=== PATIENT | male | born 1995 | race African-American/Black ===

== ENCOUNTER 2017-07-09 00:09 | Emergency (ER) | payer MEDICAID ==
[2017-07-09] MEDS ORDERED: Albuterol/Ipratropium 3.0-0.5 MG/3 ML Neb Soln NEB ONE (00:21)
[2017-07-09] MEDS ORDERED: predniSONE 20 MG Tab PO ONE (00:22)
--- NOTE | 2017-07-09 00:23 | EDM.PDOC ---
ED HPI GENERAL MEDICAL PROBLEM - General Chief Complaint: Medication Administration Stated Complaint: ASTHMA Time Seen by Provider: 07/09/17 00:21 - History of Present Illness INITIAL COMMENTS - FREE TEXT/NARRATIVE: HISTORY AND PHYSICAL: History of present illness: Patient's 21-year-old black male history of asthma presents with concern of asthmatic exacerbation he denies fever chills nausea vomiting or other complaints he states is mild Review of systems: As per history of present illness and below otherwise all systems reviewed and negative. Past medical history: As per history of present illness and as reviewed below otherwise noncontributory. Surgical history: As per history of present illness and as reviewed below otherwise noncontributory. Social history: No reported history of drug or alcohol abuse. Family history: As per history of present illness and as reviewed below otherwise noncontributory. Physical exam: HEENT: Atraumatic, normocephalic, pupils reactive, negative for conjunctival pallor or scleral icterus, mucous membranes moist, throat clear, neck supple, nontender, trachea midline. Lungs: Slightly diminished with rare end expiratory wheezing no rhonchi no crackles, breath sounds equal bilaterally, chest nontender. Heart: S1S2, regular, negative for clicks, rubs, or JVD. Abdomen: Soft, nondistended, nontender. Negative for masses or hepatosplenomegaly. Negative for costovertebral tenderness. Pelvis: Stable nontender. Genitourinary: Deferred. Rectal: Deferred. Extremities: Atraumatic, negative for cords or calf pain. Neurovascular unremarkable. Neuro: Awake, alert, oriented. Cranial nerves II through XII unremarkable. Cerebellum unremarkable. Motor and sensory unremarkable throughout. Exam nonfocal. Diagnostics: None Therapeutics: Prednisone 40 mg by mouth albuterol ipratropium nebulizer Impression: #1 mild asthmatic exacerbation Definitive disposition and diagnosis as appropriate pending reevaluation and review of above. - Related Data Allergies Allergy/AdvReac Type Severity Reaction Status Date / Time No Known Allergies Allergy Verified 07/09/17 00:14 Home Meds: Home Meds Albuterol [Ventolin HFA] 1 puff INH BID 08/15/16 [History] Past Medical History - Past Health History Medical/Surgical History: Denies Medical/Surgical History HEENT History: Reports: None Cardiovascular History: Reports: None Respiratory History: Reports: Asthma Gastrointestinal History: Reports: None Musculoskeletal History: Reports: None Neurological History: Reports: None Psychiatric History: Reports: None Endocrine/Metabolic History: Reports: None Hematologic History: Reports: None Oncologic (Cancer) History: Reports: None Dermatologic History: Reports: None - Infectious Disease History Infectious Disease History: Reports: None Social & Family History - Family History Family Medical History: Noncontributory - Tobacco Use Smoking Status *Q: Current Some Day Smoker Years of Tobacco use: 4 Packs/Tins Daily: 0.5 - Caffeine Use Caffeine Use: Reports: None - Recreational Drug Use Recreational Drug Use: No ED ROS GENERAL - Review of Systems Review Of Systems: ROS reveals no pertinent complaints other than HPI. ED EXAM, GENERAL - Physical Exam Exam: See Below (The dictation) Departure - Departure Time of Disposition: 00:22 Disposition: Home, Self-Care 01 Condition: Good Clinical Impression: Asthma - Discharge Information Referrals: PCP,None [Primary Care Provider] - Additional Instructions: The following information is given to patients seen in the emergency department who are being discharged to home. This information is to outline your options for follow-up care. We provide all patients seen in our emergency department with a follow-up referral. The need for follow-up, as well as the timing and circumstances, are variable depending upon the specifics of your emergency department visit. If you don't have a primary care physician on staff, we will provide you with a referral. We always advise you to contact your personal physician following an emergency department visit to inform them of the circumstance of the visit and for follow-up with them and/or the need for any referrals to a consulting specialist. The emergency department will also refer you to a specialist when appropriate. This referral assures that you have the opportunity for followup care with a specialist. All of these measure are taken in an effort to provide you with optimal care, which includes your followup. Under all circumstances we always encourage you to contact your private physician who remains a resource for coordinating your care. When calling for followup care, please make the office aware that this follow-up is from your recent emergency room visit. If for any reason you are refused follow-up, please contact the [facility] emergency department at and asked to speak to the emergency department charge nurse. [facility] [address] [place] [id number] Medrol albuterol as prescribed follow-up primary medical doctor and/or clinic above return as needed as discussed
[2017-07-09 00:51] VITALS: BP 118/62
== END 2017-07-09 00:49 | disposition home or self-care (01) ==
LOC: MW.ED 00:09
DX: J45.901 Unspecified asthma with (acute) exacerbation (principal); F17.210 Nicotine dependence, cigarettes, uncomplicated
CPT/HCPCS: 99282; A9270

== ENCOUNTER 2017-07-10 21:56 | Emergency (ER) | payer MEDICAID ==
[2017-07-10] MEDS ORDERED: Albuterol/Ipratropium 3.0-0.5 MG/3 ML Neb Soln NEB ONE (22:01)
[2017-07-10] MEDS ORDERED: Albuterol/Ipratropium 3.0-0.5 MG/3 ML Neb Soln ONE (22:02)
--- NOTE | 2017-07-10 22:04 | EDM.PDOC ---
ED HPI GENERAL MEDICAL PROBLEM - General Chief Complaint: Respiratory Problem Stated Complaint: ASTHMA ATTACK Time Seen by Provider: 07/10/17 21:59 - History of Present Illness INITIAL COMMENTS - FREE TEXT/NARRATIVE: HISTORY AND PHYSICAL: History of present illness: Patient's 21-year-old black male history of asthma presents with concern of asthma he was seen yesterday by myself he has not filled his prescription for Medrol Review of systems: As per history of present illness and below otherwise all systems reviewed and negative. Past medical history: As per history of present illness and as reviewed below otherwise noncontributory. Surgical history: As per history of present illness and as reviewed below otherwise noncontributory. Social history: No reported history of drug or alcohol abuse. Family history: As per history of present illness and as reviewed below otherwise noncontributory. Physical exam: HEENT: Atraumatic, normocephalic, pupils reactive, negative for conjunctival pallor or scleral icterus, mucous membranes moist, throat clear, neck supple, nontender, trachea midline. Lungs: Clear to auscultation, breath sounds equal bilaterally, chest nontender. Heart: S1S2, regular, negative for clicks, rubs, or JVD. Abdomen: Soft, nondistended, nontender. Negative for masses or hepatosplenomegaly. Negative for costovertebral tenderness. Pelvis: Stable nontender. Genitourinary: Deferred. Rectal: Deferred. Extremities: Atraumatic, negative for cords or calf pain. Neurovascular unremarkable. Neuro: Awake, alert, oriented. Cranial nerves II through XII unremarkable. Cerebellum unremarkable. Motor and sensory unremarkable throughout. Exam nonfocal. Diagnostics: None Therapeutics: Albuterol ipratropium nebulizer Impression: #1 asthma #2 medical noncompliance Definitive disposition and diagnosis as appropriate pending reevaluation and review of above. - Related Data Allergies Allergy/AdvReac Type Severity Reaction Status Date / Time No Known Allergies Allergy Verified 07/09/17 00:14 Home Meds: Home Meds Albuterol [Ventolin HFA] 1 puff INH BID 08/15/16 [History] Past Medical History - Past Health History Medical/Surgical History: Denies Medical/Surgical History HEENT History: Reports: None Cardiovascular History: Reports: None Respiratory History: Reports: Asthma Gastrointestinal History: Reports: None Musculoskeletal History: Reports: None Neurological History: Reports: None Psychiatric History: Reports: None Endocrine/Metabolic History: Reports: None Hematologic History: Reports: None Oncologic (Cancer) History: Reports: None Dermatologic History: Reports: None - Infectious Disease History Infectious Disease History: Reports: None Social & Family History - Family History Family Medical History: Noncontributory - Tobacco Use Smoking Status *Q: Current Some Day Smoker Years of Tobacco use: 4 Packs/Tins Daily: 0.5 - Caffeine Use Caffeine Use: Reports: None - Recreational Drug Use Recreational Drug Use: No ED ROS GENERAL - Review of Systems Review Of Systems: ROS reveals no pertinent complaints other than HPI. ED EXAM, GENERAL - Physical Exam Exam: See Below (See dictation) Course - Orders/Labs/Meds Orders: Active Orders 24 hr Category Date Time Status RT Aerosol Therapy [RC] ASDIRECTED Care 07/10/17 22:01 Ordered Albuterol/Ipratropium [DuoNeb 3.0-0.5 MG/3 ML] Med 07/10/17 22:01 Once 3 ml NEB ONETIME ONE Departure - Departure Time of Disposition: 22:03 Disposition: Home, Self-Care 01 Condition: Good Clinical Impression: Asthma, Medical non-compliance - Discharge Information Referrals: PCP,None [Primary Care Provider] - Additional Instructions: The following information is given to patients seen in the emergency department who are being discharged to home. This information is to outline your options for follow-up care. We provide all patients seen in our emergency department with a follow-up referral. The need for follow-up, as well as the timing and circumstances, are variable depending upon the specifics of your emergency department visit. If you don't have a primary care physician on staff, we will provide you with a referral. We always advise you to contact your personal physician following an emergency department visit to inform them of the circumstance of the visit and for follow-up with them and/or the need for any referrals to a consulting specialist. The emergency department will also refer you to a specialist when appropriate. This referral assures that you have the opportunity for followup care with a specialist. All of these measure are taken in an effort to provide you with optimal care, which includes your followup. Under all circumstances we always encourage you to contact your private physician who remains a resource for coordinating your care. When calling for followup care, please make the office aware that this follow-up is from your recent emergency room visit. If for any reason you are refused follow-up, please contact the [facility] emergency department at and asked to speak to the emergency department charge nurse. [facility] [address] [place] [id number] Medrol is prescribed albuterol as directed follow-up primary medical doctor and/ or clinic above as discussed return as needed as discussed - My Orders Last 24 Hours: My Active Orders 07/10/17 22:01 RT Aerosol Therapy [RC] ASDIRECTED Albuterol/Ipratropium [DuoNeb 3.0-0.5 MG/3 ML] 3 ml NEB ONETIME ONE - Assessment/Plan Last 24 Hours: My Active Orders 07/10/17 22:01 RT Aerosol Therapy [RC] ASDIRECTED Albuterol/Ipratropium [DuoNeb 3.0-0.5 MG/3 ML] 3 ml NEB ONETIME ONE
[2017-07-10 22:30] VITALS: BP 134/69
== END 2017-07-10 22:30 | disposition home or self-care (01) ==
LOC: MW.ED 21:56
DX: J45.909 Unspecified asthma, uncomplicated (principal); F17.210 Nicotine dependence, cigarettes, uncomplicated; Z91.19 Patient's noncompliance with other medical treatment and regimen
CPT/HCPCS: 99282; 99284-25

== ENCOUNTER 2017-07-12 22:42 | Observation (INO) | payer MEDICAID ==
[2017-07-12] MEDS ORDERED: Albuterol/Ipratropium 3.0-0.5 MG/3 ML Neb Soln NEB ONE ×2 (22:47→23:52)
--- NOTE | 2017-07-12 22:51 | EDM.PDOC ---
ED HPI GENERAL MEDICAL PROBLEM - General Chief Complaint: Respiratory Problem Stated Complaint: MAY HAVE HAD ASTHMA ATTACK Time Seen by Provider: 07/12/17 22:48 - History of Present Illness INITIAL COMMENTS - FREE TEXT/NARRATIVE: HISTORY AND PHYSICAL: History of present illness: Patient's 21-year-old black male history of asthma presents for the third time in 3 days for asthmatic exacerbation he was seen on day 2 after returning and confirming medical noncompliance related to medications prescribed he returns today stating that he has been compliant with his medications equivocates whether he's been using marijuana or not. He does smell of marijuana he denies tobacco otherwise Review of systems: As per history of present illness and below otherwise all systems reviewed and negative. Past medical history: As per history of present illness and as reviewed below otherwise noncontributory. Surgical history: As per history of present illness and as reviewed below otherwise noncontributory. Social history: No reported history of drug or alcohol abuse. Family history: As per history of present illness and as reviewed below otherwise noncontributory. Physical exam: HEENT: Atraumatic, normocephalic, pupils reactive, negative for conjunctival pallor or scleral icterus, mucous membranes moist, throat clear, neck supple, nontender, trachea midline. Lungs: Scattered inspiratory and expiratory wheezing no rhonchi or crackles, breath sounds equal bilaterally, chest nontender. Heart: S1S2, regular, negative for clicks, rubs, or JVD. Abdomen: Soft, nondistended, nontender. Negative for masses or hepatosplenomegaly. Negative for costovertebral tenderness. Pelvis: Stable nontender. Genitourinary: Deferred. Rectal: Deferred. Extremities: Atraumatic, negative for cords or calf pain. Neurovascular unremarkable. Neuro: Awake, alert, oriented. Cranial nerves II through XII unremarkable. Cerebellum unremarkable. Motor and sensory unremarkable throughout. Exam nonfocal. Diagnostics: Chest x-ray ABG urine drug screen Therapeutics: Albuterol ipratropium nebulizer Impression: #1 acute asthmatic exacerbation #2 medical noncompliance #3 substance abuse Definitive disposition and diagnosis as appropriate pending reevaluation and review of above. - Related Data Allergies Allergy/AdvReac Type Severity Reaction Status Date / Time No Known Allergies Allergy Verified 07/10/17 22:05 Home Meds: Home Meds Albuterol [Ventolin HFA] 1 puff INH BID PRN 08/15/16 [History] Past Medical History - Past Health History Medical/Surgical History: Denies Medical/Surgical History HEENT History: Reports: None Cardiovascular History: Reports: None Respiratory History: Reports: Asthma Gastrointestinal History: Reports: None Musculoskeletal History: Reports: None Neurological History: Reports: None Psychiatric History: Reports: None Endocrine/Metabolic History: Reports: None Hematologic History: Reports: None Oncologic (Cancer) History: Reports: None Dermatologic History: Reports: None - Infectious Disease History Infectious Disease History: Reports: None Social & Family History - Family History Family Medical History: Noncontributory - Tobacco Use Smoking Status *Q: Current Every Day Smoker Years of Tobacco use: 3 Packs/Tins Daily: 0.5 - Caffeine Use Caffeine Use: Reports: Coffee, Soda - Recreational Drug Use Recreational Drug Use: No ED ROS GENERAL - Review of Systems Review Of Systems: ROS reveals no pertinent complaints other than HPI. ED EXAM, GENERAL - Physical Exam Exam: See Below (See dictated) Course - Vital Signs Last Recorded V/S: Last Vital Signs Temp 36.4 C 07/12/17 22:42 Pulse 138 H 07/12/17 22:42 Resp 30 H 07/12/17 22:42 BP 136/89 07/12/17 22:42 Pulse Ox 98 07/12/17 22:42 - Orders/Labs/Meds Orders: Active Orders 24 hr Category Date Time Status RT Aerosol Therapy [RC] ASDIRECTED Care 07/12/17 22:47 Active RT Aerosol Therapy [RC] ASDIRECTED Care 07/12/17 23:52 Active Chest 1V Frontal [CR] Stat Exams 07/12/17 22:48 Taken Labs: Laboratory Tests 07/12/17 07/12/17 Range/Units 23:11 23:30 ABG pH 7.447 (7.35-7.45) ABG pCO2 33 L (35-45) mmHG ABG pO2 67 L (75-100) mmHG ABG HCO3 23 (22-26) mEq/L ABG Total CO2 20.2 ABG Base Excess -0.3 (-2.0-2.0) Urine Opiates Screen NEGATIVE (NEGATIVE) Ur Oxycodone Screen NEGATIVE (NEGATIVE) Urine Methadone Screen NEGATIVE (NEGATIVE) Ur Barbiturates Screen NEGATIVE (NEGATIVE) Ur Phencyclidine Scrn NEGATIVE (NEGATIVE) Ur Amphetamine Screen NEGATIVE (NEGATIVE) U Methamphetamines Scrn NEGATIVE (NEGATIVE) U Benzodiazepines Scrn NEGATIVE (NEGATIVE) U Cocaine Metab Screen NEGATIVE (NEGATIVE) U Marijuana (THC) Screen POSITIVE (NEGATIVE) Meds: Medications Discontinued Medications Generic Name Dose Route Start Last Admin Trade Name Freq PRN Reason Stop Dose Admin Albuterol/Ipratropium 3 ml 07/12/17 22:47 07/12/17 23:01 Duoneb 3.0-0.5 Mg/3 Ml NEB 07/12/17 22:48 3 ml ONETIME ONE Administration Albuterol/Ipratropium 3 ml 07/12/17 23:52 07/12/17 23:59 Duoneb 3.0-0.5 Mg/3 Ml NEB 07/12/17 23:53 3 ml ONETIME ONE Administration Departure - Departure Time of Disposition: 00:26 Disposition: Refer to Observation Condition: Good Clinical Impression: Exacerbation of asthma - Discharge Information Referrals: PCP,None [Primary Care Provider] - Forms: ED Department Discharge - My Orders Last 24 Hours: My Active Orders 07/12/17 22:47 RT Aerosol Therapy [RC] ASDIRECTED 07/12/17 22:48 Chest 1V Frontal [CR] Stat 07/12/17 23:52 RT Aerosol Therapy [RC] ASDIRECTED - Assessment/Plan Last 24 Hours: My Active Orders 07/12/17 22:47 RT Aerosol Therapy [RC] ASDIRECTED 07/12/17 22:48 Chest 1V Frontal [CR] Stat 07/12/17 23:52 RT Aerosol Therapy [RC] ASDIRECTED
[2017-07-13] MEDS ORDERED: methylPREDNISolone Sodium Succinate 125 MG/2 ML SDV IVPUSH ONE (00:32)
[2017-07-13 01:09] LABS: CHLORIDE,CL 107 mmol/L (98-110); SODIUM,NA 139 mmol/L (136-146)
[2017-07-13] MEDS: Albuterol/Ipratropium 3.0-0.5 MG/3 ML Neb Soln NEB SCH ×2 (03:16→06:21)
[2017-07-13 06:58] LABS: CHLORIDE,CL 107 mmol/L (98-110); SODIUM,NA 137 mmol/L (136-146)
[2017-07-13] MEDS ORDERED: methylPREDNISolone Sodium Succinate 125 MG/2 ML SDV IVPUSH SCH (07:00)
[2017-07-13 09:22] VITALS: BP 112/71
--- NOTE | 2017-07-13 10:50 | PCM.HP ---
<Favio Grijalva - Last Filed: 07/13/17 10:43> H&P History of Present Illness - General Date of Service: 07/13/17 Admit Problem/Dx: asthma exacerbation Source of Information: Patient History Limitations: Reports: No Limitations - History of Present Illness Initial Comments - Free Text/Narative: 21-year-old male is being admitted with an asthma exacerbation. Patient presented to the emergency room complaining of shortness of breath and stating that he had not been compliant with his recently prescribed albuterol. Patient has been short of breath over 3 days. Patient has no other medical problems. He currently denies any headaches, dizziness, chest pain, palpitations, abdominal pain, nausea, vomiting, diarrhea, fever. ER course: Chest x-ray was unremarkable. Patient given multiple treatments of DuoNeb's. Patient did not require supplemental O2 in the emergency room. White count was slightly elevated at 11.4. BMP was unremarkable. Admission diagnosis: #1. Asthma exacerbation Discharge diagnoses: #1. Asthma exacerbation, improved 21-year-old male admitted with an asthma exacerbation. Upon presenting to the emergency room, the patient was tachycardic and tachypnea and was given multiple treatments with duo nebs. Chest x-ray was unremarkable. White blood cell count was elevated at 11.4 but at the time of discharge had improved to within normal limits. Patient did not require supplemental oxygen at anytime during hospitalization. He was treated with scheduled DuoNeb's and a one-time dose of Solu-Medrol during admission. Patient notes that with these treatments his work of breathing improved and he was no longer short of breath. At the time of discharge, the patient was tolerating oral intake and voiding appropriately. He was ambulating without shortness of breath without assistance. Vital signs were within normal limits at the time of discharge. Patient was afebrile and did not have any concerns. Discharge plan: #1. Follow-up appointment will be set up with Dr. Grijalva. #2. Patient will continue with albuterol inhaler as needed. #3. Patient prescribed prednisone 40 mg over 7 days. #4. Patient prescribed Pulmicort for daily use to prevent asthma exacerbation. chest Pain Score (Numeric/FACES): 7 - Related Data Allergies/Adverse Reactions: Allergies Allergy/AdvReac Type Severity Reaction Status Date / Time No Known Allergies Allergy Verified 07/10/17 22:05 Home Medications: Home Meds Albuterol [Ventolin HFA] 1 puff INH BID PRN 08/15/16 [History] Budesonide [Pulmicort Flexhaler] 180 mcg IH BID #1 [email or web address] 07/13/17 [Rx] predniSONE 40 mg PO WITHBREAKFAST #7 tablet 07/13/17 [Rx] Past Medical History - Past Health History Medical/Surgical History: Denies Medical/Surgical History HEENT History: Reports: None Cardiovascular History: Reports: None Respiratory History: Reports: Asthma Gastrointestinal History: Reports: None Musculoskeletal History: Reports: None Neurological History: Reports: None Psychiatric History: Reports: None Endocrine/Metabolic History: Reports: None Hematologic History: Reports: None Oncologic (Cancer) History: Reports: None Dermatologic History: Reports: None - Infectious Disease History Infectious Disease History: Reports: Chicken Pox Social & Family History - Family History Family Medical History: Noncontributory HEENT: Reports: Impaired Vision Cardiac: Reports: Hypertension Respiratory: Reports: Asthma Oncologic: Reports: Breast - Tobacco Use Smoking Status *Q: Current Some Day Smoker Years of Tobacco use: 3 Packs/Tins Daily: 0.3 Second Hand Smoke Exposure: Yes - Caffeine Use Caffeine Use: Reports: Coffee - Recreational Drug Use Recreational Drug Use: Yes Drug Use in Last 12 Months: Yes Recreational Drug Type: Reports: Marijuana/Hashish Recreational Drug Use Frequency: Weekly H&P Review of Systems - Review of Systems: Review Of Systems: See Below General: Reports: No Symptoms HEENT: Reports: No Symptoms Pulmonary: Reports: Shortness of Breath, Wheezing Cardiovascular: Reports: No Symptoms Gastrointestinal: Reports: No Symptoms Genitourinary: Reports: No Symptoms Musculoskeletal: Reports: No Symptoms Skin: Reports: No Symptoms Psychiatric: Reports: No Symptoms Neurological: Reports: No Symptoms Hematologic/Lymphatic: Reports: No Symptoms Immunologic: Reports: No Symptoms Exam - Exam Exam: See Below - Vital Signs Vital Signs: Last Vital Signs Temp 98.6 F 07/13/17 08:00 Pulse 89 07/13/17 08:00 Resp 15 07/13/17 08:00 BP 112/71 07/13/17 08:00 Pulse Ox 96 07/13/17 08:00 Weight: 77.111 kg - Exam General: Alert, Oriented, Cooperative HEENT: Conjunctiva Clear, Hearing Intact, Mucosa Moist & Harrell, Nares Patent, Normal Nasal Septum Neck: Supple, Trachea Midline, 2 Lungs: Clear to Auscultation, Normal Respiratory Effort Cardiovascular: Regular Rate, Regular Rhythm GI/Abdominal Exam: Normal Bowel Sounds, Soft, Non-Tender, No Organomegaly, No Distention, No Abnormal Bruit, No Mass Extremities: Normal Inspection, Normal Range of Motion, Non-Tender, No Pedal Edema, Normal Capillary Refill Peripheral Pulses: 2+: Radial (L), Radial (R), Posterior Tibial (L), Posterior Tibial (R) Skin: Warm, Dry, Intact Neuro Extensive - Mental Status: Alert, Oriented x3, Normal Mood/Affect, Normal Cognition Psychiatric: Alert, Normal Affect, Normal Mood - Patient Data Lab Results Last 24 hrs: Laboratory Results - last 24 hr 07/13/17 07/13/17 07/13/17 Range/Units 00:40 00:40 06:25 WBC 11.44 H 9.42 (4.0-11.0) K/uL RBC 5.13 5.23 (4.50-5.90) M/uL Hgb 14.1 14.6 (13.0-17.0) g/dL Hct 41.2 42.1 (38.0-50.0) % MCV 80.3 80.5 (80.0-98.0) fL MCH 27.5 27.9 (27.0-32.0) pg MCHC 34.2 34.7 (31.0-37.0) g/dL RDW Std Deviation 35.6 37.8 (28.0-62.0) fl RDW Coeff of Lucia 12 13 (11.0-15.0) % Plt Count 188 193 (150-400) K/uL MPV 10.60 10.40 (7.40-12.00) fL Neut % (Auto) 83.3 H 89.2 H (48.0-80.0) % Lymph % (Auto) 8.3 L 7.7 L (16.0-40.0) % [place] % (Auto) 6.4 2.3 (0.0-15.0) % Eos % (Auto) 1.8 0.7 (0.0-7.0) % Baso % (Auto) 0.2 0.1 (0.0-1.5) % Neut # (Auto) 9.5 H 8.4 H (1.4-5.7) K/uL Lymph # (Auto) 1.0 0.7 (0.6-2.4) K/uL [place] # (Auto) 0.7 0.2 (0.0-0.8) K/uL Eos # (Auto) 0.2 0.1 (0.0-0.7) K/uL Baso # (Auto) 0.0 0.0 (0.0-0.1) K/uL Nucleated RBC % 0.0 /100WBC Nucleated RBCs # 0 K/uL Sodium 139 (136-146) mmol/L Potassium 3.4 L (3.5-5.1) mmol/L Chloride 107 (98-110) mmol/L Carbon Dioxide 19 L (21-31) mmol/L BUN 17 (6.0-23.0) mg/dL Creatinine 1.0 (0.6-1.5) mg/dL Est Cr Clr Drug Dosing TNP Estimated GFR (MDRD) > 60.0 ml/min Glucose 108 (60-110) mg/dL Calcium 9.3 (8.8-10.8) mg/dL Total Bilirubin 0.6 (0.1-1.5) mg/dL AST 36 (5-40) IU/L ALT 27 (8-54) IU/L Alkaline Phosphatase 68 (40-150) Total Protein 7.3 (6.0-8.0) g/dL Albumin 4.3 (3.5-5.0) g/dL Globulin 3.0 (2.0-3.5) g/dL Albumin/Globulin Ratio 1.4 (1.3-2.8) 07/13/17 Range/Units 06:25 WBC (4.0-11.0) K/uL RBC (4.50-5.90) M/uL Hgb (13.0-17.0) g/dL Hct (38.0-50.0) % MCV (80.0-98.0) fL MCH (27.0-32.0) pg MCHC (31.0-37.0) g/dL RDW Std Deviation (28.0-62.0) fl RDW Coeff of Lucia (11.0-15.0) % Plt Count (150-400) K/uL MPV (7.40-12.00) fL Neut % (Auto) (48.0-80.0) % Lymph % (Auto) (16.0-40.0) % [place] % (Auto) (0.0-15.0) % Eos % (Auto) (0.0-7.0) % Baso % (Auto) (0.0-1.5) % Neut # (Auto) (1.4-5.7) K/uL Lymph # (Auto) (0.6-2.4) K/uL [place] # (Auto) (0.0-0.8) K/uL Eos # (Auto) (0.0-0.7) K/uL Baso # (Auto) (0.0-0.1) K/uL Nucleated RBC % /100WBC Nucleated RBCs # K/uL Sodium 137 (136-146) mmol/L Potassium 4.4 (3.5-5.1) mmol/L Chloride 107 (98-110) mmol/L Carbon Dioxide 22 (21-31) mmol/L BUN 16 (6.0-23.0) mg/dL Creatinine 1.0 (0.6-1.5) mg/dL Est Cr Clr Drug Dosing 110.17 Estimated GFR (MDRD) > 60.0 ml/min Glucose 168 H (60-110) mg/dL Calcium 9.6 (8.8-10.8) mg/dL Total Bilirubin 0.6 (0.1-1.5) mg/dL AST 31 (5-40) IU/L ALT 27 (8-54) IU/L Alkaline Phosphatase 68 (40-150) Total Protein 7.1 (6.0-8.0) g/dL Albumin 4.3 (3.5-5.0) g/dL Globulin 2.8 (2.0-3.5) g/dL Albumin/Globulin Ratio 1.5 (1.3-2.8) Result Diagrams: 07/13/17 06:25 07/13/17 06:25 *Q Meaningful Use (ADM) - VTE *Q VTE Criteria *Q: - Stroke *Q Stroke Criteria *Q: - AMI *Q AMI Criteria *Q: - Problem List (1) Exacerbation of asthma SNOMED Code(s): 995240661 ICD Code: J45.901 - UNSPECIFIED ASTHMA WITH (ACUTE) EXACERBATION Status: Acute Problem List Initiated/Reviewed/Updated: Yes Orders Last 24hrs: Active Orders 24 hr Category Date Time Status Activity as Tolerated [RC] .Routine Care 07/13/17 02:51 Active RT Aerosol Therapy [RC] ASDIRECTED Care 07/13/17 02:53 Active Ready for Discharge [RC] PER UNIT ROUTINE Care 07/13/17 08:11 Active Regular Diet [DIET] Diet 07/13/17 Breakfast Active Albuterol/Ipratropium [DuoNeb 3.0-0.5 MG/3 ML] Med 07/13/17 03:00 Active 3 ml NEB Q6HRRT methylPREDNISolone Sod Succ [Solu-MEDROL] Med 07/13/17 07:00 Active 125 mg IVPUSH Q6H Medication Orders Albuterol/Ipratropium (Duoneb 3.0-0.5 Mg/3 Ml) 3 ml NEB Q6HRRT [facility] Last Admin: 07/13/17 06:21 Dose: 3 ml Admin: 07/13/17 03:16 Dose: Methylprednisolone Sodium Succinate (Solu-Medrol) 125 mg IVPUSH Q6H [facility] Last Admin: 07/13/17 07:58 Dose: 125 mg Assessment/Plan Comment:: 21-year-old male is being admitted with an asthma exacerbation. Patient presented to the emergency room complaining of shortness of breath and stating that he had not been compliant with his recently prescribed albuterol. Patient has been short of breath over 3 days. Patient has no other medical problems. He currently denies any headaches, dizziness, chest pain, palpitations, abdominal pain, nausea, vomiting, diarrhea, fever. ER course: Chest x-ray was unremarkable. Patient given multiple treatments of DuoNeb's. Patient did not require supplemental O2 in the emergency room. White count was slightly elevated at 11.4. BMP was unremarkable. Admission diagnosis: #1. Asthma exacerbation Discharge diagnoses: #1. Asthma exacerbation, improved 21-year-old male admitted with an asthma exacerbation. Upon presenting to the emergency room, the patient was tachycardic and tachypnea and was given multiple treatments with duo nebs. Chest x-ray was unremarkable. White blood cell count was elevated at 11.4 but at the time of discharge had improved to within normal limits. Patient did not require supplemental oxygen at anytime during hospitalization. He was treated with scheduled DuoNeb's and a one-time dose of Solu-Medrol during admission. Patient notes that with these treatments his work of breathing improved and he was no longer short of breath. At the time of discharge, the patient was tolerating oral intake and voiding appropriately. He was ambulating without shortness of breath without assistance. Vital signs were within normal limits at the time of discharge. Patient was afebrile and did not have any concerns. Discharge plan: #1. Follow-up appointment will be set up with Dr. Grijalva. #2. Patient will continue with albuterol inhaler as needed. #3. Patient prescribed prednisone 40 mg over 7 days. #4. Patient prescribed Pulmicort for daily use to prevent asthma exacerbation. Patient was in the hospital less than 24 hours and this note will also be used for the patient's discharge summary. <Kike Trinh - Last Filed: 07/13/17 14:14> H&P History of Present Illness - General Admit Problem/Dx: Admission Diagnosis/Problem Admission Diagnosis/Problem Acute asthma Exam - Vital Signs Vital Signs: Last Vital Signs Temp 37.0 C 07/13/17 08:00 Pulse 89 07/13/17 08:00 Resp 15 07/13/17 08:00 BP 112/71 07/13/17 08:00 Pulse Ox 96 07/13/17 08:00 - Patient Data Lab Results Last 24 hrs: Laboratory Results - last 24 hr 07/13/17 07/13/17 07/13/17 Range/Units 00:40 00:40 06:25 WBC 11.44 H 9.42 (4.0-11.0) K/uL RBC 5.13 5.23 (4.50-5.90) M/uL Hgb 14.1 14.6 (13.0-17.0) g/dL Hct 41.2 42.1 (38.0-50.0) % MCV 80.3 80.5 (80.0-98.0) fL MCH 27.5 27.9 (27.0-32.0) pg MCHC 34.2 34.7 (31.0-37.0) g/dL RDW Std Deviation 35.6 37.8 (28.0-62.0) fl RDW Coeff of Lucia 12 13 (11.0-15.0) % Plt Count 188 193 (150-400) K/uL MPV 10.60 10.40 (7.40-12.00) fL Neut % (Auto) 83.3 H 89.2 H (48.0-80.0) % Lymph % (Auto) 8.3 L 7.7 L (16.0-40.0) % [place] % (Auto) 6.4 2.3 (0.0-15.0) % Eos % (Auto) 1.8 0.7 (0.0-7.0) % Baso % (Auto) 0.2 0.1 (0.0-1.5) % Neut # (Auto) 9.5 H 8.4 H (1.4-5.7) K/uL Lymph # (Auto) 1.0 0.7 (0.6-2.4) K/uL [place] # (Auto) 0.7 0.2 (0.0-0.8) K/uL Eos # (Auto) 0.2 0.1 (0.0-0.7) K/uL Baso # (Auto) 0.0 0.0 (0.0-0.1) K/uL Nucleated RBC % 0.0 /100WBC Nucleated RBCs # 0 K/uL Sodium 139 (136-146) mmol/L Potassium 3.4 L (3.5-5.1) mmol/L Chloride 107 (98-110) mmol/L Carbon Dioxide 19 L (21-31) mmol/L BUN 17 (6.0-23.0) mg/dL Creatinine 1.0 (0.6-1.5) mg/dL Est Cr Clr Drug Dosing TNP Estimated GFR (MDRD) > 60.0 ml/min Glucose 108 (60-110) mg/dL Calcium 9.3 (8.8-10.8) mg/dL Total Bilirubin 0.6 (0.1-1.5) mg/dL AST 36 (5-40) IU/L ALT 27 (8-54) IU/L Alkaline Phosphatase 68 (40-150) Total Protein 7.3 (6.0-8.0) g/dL Albumin 4.3 (3.5-5.0) g/dL Globulin 3.0 (2.0-3.5) g/dL Albumin/Globulin Ratio 1.4 (1.3-2.8) 07/13/17 Range/Units 06:25 WBC (4.0-11.0) K/uL RBC (4.50-5.90) M/uL Hgb (13.0-17.0) g/dL Hct (38.0-50.0) % MCV (80.0-98.0) fL MCH (27.0-32.0) pg MCHC (31.0-37.0) g/dL RDW Std Deviation (28.0-62.0) fl RDW Coeff of Lucia (11.0-15.0) % Plt Count (150-400) K/uL MPV (7.40-12.00) fL Neut % (Auto) (48.0-80.0) % Lymph % (Auto) (16.0-40.0) % [place] % (Auto) (0.0-15.0) % Eos % (Auto) (0.0-7.0) % Baso % (Auto) (0.0-1.5) % Neut # (Auto) (1.4-5.7) K/uL Lymph # (Auto) (0.6-2.4) K/uL [place] # (Auto) (0.0-0.8) K/uL Eos # (Auto) (0.0-0.7) K/uL Baso # (Auto) (0.0-0.1) K/uL Nucleated RBC % /100WBC Nucleated RBCs # K/uL Sodium 137 (136-146) mmol/L Potassium 4.4 (3.5-5.1) mmol/L Chloride 107 (98-110) mmol/L Carbon Dioxide 22 (21-31) mmol/L BUN 16 (6.0-23.0) mg/dL Creatinine 1.0 (0.6-1.5) mg/dL Est Cr Clr Drug Dosing 110.17 Estimated GFR (MDRD) > 60.0 ml/min Glucose 168 H (60-110) mg/dL Calcium 9.6 (8.8-10.8) mg/dL Total Bilirubin 0.6 (0.1-1.5) mg/dL AST 31 (5-40) IU/L ALT 27 (8-54) IU/L Alkaline Phosphatase 68 (40-150) Total Protein 7.1 (6.0-8.0) g/dL Albumin 4.3 (3.5-5.0) g/dL Globulin 2.8 (2.0-3.5) g/dL Albumin/Globulin Ratio 1.5 (1.3-2.8) Result Diagrams: 07/13/17 06:25 07/13/17 06:25 *Q Meaningful Use (ADM) - VTE *Q VTE Criteria *Q: - Stroke *Q Stroke Criteria *Q: - AMI *Q AMI Criteria *Q: Orders Last 24hrs: Active Orders 24 hr Category Date Time Status Activity as Tolerated [RC] .Routine Care 07/13/17 02:51 Active RT Aerosol Therapy [RC] ASDIRECTED Care 07/13/17 02:53 Active Ready for Discharge [RC] PER UNIT ROUTINE Care 07/13/17 08:11 Active - Free Text/Narrative Note: I have examined the patient. I have discussed findings and treatment plan with resident. I agree with the assessment and plan outlined in the following resident's note.
--- NOTE | 2017-07-13 14:26 | CR ---
EXAM DATE: 07/13/17 PATIENT'S AGE: 21 Patient: JERRY GILBERT Facility: [place], [place] Site . Site : 1996 Study: XRay Chest [id number]/5/2017 11:49:23 PM Ordering Physician: Abimbola Garcia Final Report: INDICATION: Cough. TECHNIQUE: Chest radiograph 1 view COMPARISON: 08/15/2016. FINDINGS: Cardiovascular and mediastinum: The heart silhouette is normal in size and morphology. The mediastinum is normal in appearance. Lungs and pleural spaces: Both lungs are unremarkable in appearance. No sign of pleural effusion seen. No pneumothorax is identified. Bones and soft tissues: No significant findings. IMPRESSION: 1. No acute cardiopulmonary disease is seen. Dictated by Israel Brown MD @ 07/12/2017 11:54:06 PM Dictated by: Israel Brown MD @ 07/12/2017 23:54:10 (Electronic Signature) Report Signed by Proxy. [facility]INGS[facility] MEDICAL CENTERBrandon
== END 2017-07-13 10:20 | disposition home or self-care (01) ==
LOC: MW.ED 22:42 → MW.OB 07-13 00:26
PROVIDERS: ADMIT Internal Medicine; ATTEND Internal Medicine
DX: J45.901 Unspecified asthma with (acute) exacerbation (principal); F17.210 Nicotine dependence, cigarettes, uncomplicated
CPT/HCPCS: 36415; 36600; 71010; 80053; 80305; 82803; 85025; 96374; 96376; 99285; G0378; J2930; 99283

== ENCOUNTER 2019-01-08 00:50 | Emergency (ER) | payer SELFPAY ==
[2019-01-08 01:13] VITALS: BP 105/77
--- NOTE | 2019-01-08 02:59 | CR ---
Indication: Pain Technique: Three views left knee Comparison: None Findings: Bones: Alignment is normal. No fractures or bone lesions. Joint spaces: Unremarkable. Soft tissues: Unremarkable. Impression: Negative. Dictated by Fatmata Tomlin MD @ Jan 08 2019 2:57AM Signed by Dr. Fatmata Tomlin @ Jan 08 2019 2:57AM
[2019-01-08] MEDS ORDERED: Morphine 2 MG/ML Syringe IVPUSH ONE (03:17)
[2019-01-08] MEDS ORDERED: Sodium Chloride 0.9% 1,000 ML IV SCH (03:30)
[2019-01-08 04:06] LABS: CHLORIDE,CL 102 mmol/L (98-107); SODIUM,NA 138 mmol/L (136-148)
[2019-01-08] MEDS ORDERED: Lidocaine 1% 10 ML MDV INJECT ONE (04:22)
[2019-01-08] MEDS ORDERED: cefTRIAXone 1 GM in Premix Bag 1 BAG IV ONE (04:38)
--- NOTE | 2019-01-08 04:55 | EDM.PDOC ---
ED HPI GENERAL MEDICAL PROBLEM - General Chief Complaint: Skin Complaint Stated Complaint: LT KNEE HURTS Time Seen by Provider: 01/08/19 04:54 Source of Information: Reports: Patient - History of Present Illness INITIAL COMMENTS - FREE TEXT/NARRATIVE: HISTORY AND PHYSICAL: History of present illness: [ Patient presents with left lower extremity pain just above the knee, rates 8 out of 10 worse with movement better at rest it is red warm and tender from the level of just above the patella up to the proximal thigh being warm however the area of redness is palms sized at this time there is a small central nidus which the patient states he squeezed and expressed some white exudate from this area as well as serous jet drainage, this nidus small in nature subcentimeter however there is some dependent swelling superficially extending down the patella slightly fluctuant consistent with abscess, I did perform a small 1 cm incision near the central nidus and did not get any exudate. Itself is fully mobile with flexor and extensor and does not appear to have any joint involvement at this time Patient does not complain of any fever nausea vomiting chills sweats no chest pain shortness breath headache dizziness palpitation no bowel or urine symptoms ] Review of systems: As per history of present illness and below otherwise all systems reviewed and negative. Past medical history: As per history of present illness and as reviewed below otherwise noncontributory. Surgical history: As per history of present illness and as reviewed below otherwise noncontributory. Social history: No reported history of drug or alcohol abuse. Family history: As per history of present illness and as reviewed below otherwise noncontributory. Physical exam: HEENT: Atraumatic, normocephalic, pupils reactive, negative for conjunctival pallor or scleral icterus, mucous membranes moist, throat clear, neck supple, nontender, trachea midline. Lungs: Clear to auscultation, breath sounds equal bilaterally, chest nontender. Heart: S1S2, regular, negative for clicks, rubs, or JVD. Abdomen: Soft, nondistended, nontender. Negative for masses or hepatosplenomegaly. Negative for costovertebral tenderness. Pelvis: Stable nontender. Genitourinary: Deferred. Rectal: Deferred. Extremities: Atraumatic, negative for cords or calf pain. Neurovascular unremarkable. Neuro: Awake, alert, oriented. Cranial nerves II through XII unremarkable. Cerebellum unremarkable. Motor and sensory unremarkable throughout. Exam nonfocal. Diagnostics: [CBC CMP UA ESR blood cultures 2 Left knee 3 views Therapeutics: [Normal saline Morphine 2 mg IV Lidocaine Rocephin 1 g IV Bactrim double strength by mouth now and twice a day #20 no refill Curtis No. 10 no refill Attempted I&D was made however no exudate was expressed sedated obtain a culture of serosanguineous fluid that was expressed Patient has a palms sized area of redness and swelling however warmth extends all the way up the inner thigh did urge the patient to stay for observation admission and continued IV antibiotics however he refused to return home and has no complaints and is otherwise cooperative, he states he'll return if symptoms persist or worsen. ] Impression: [ cellulitis left lower extremity] Definitive disposition and diagnosis as appropriate pending reevaluation and review of above. Left Knee Pain Score (Numeric/FACES): 10 - Related Data Allergies Allergy/AdvReac Type Severity Reaction Status Date / Time No Known Allergies Allergy Verified 01/08/19 01:13 Home Meds: Home Meds . [No Known Home Meds] 01/08/19 [History] Past Medical History - Past Health History Medical/Surgical History: Denies Medical/Surgical History HEENT History: Reports: None Cardiovascular History: Reports: None Respiratory History: Reports: Asthma Gastrointestinal History: Reports: None Musculoskeletal History: Reports: None Neurological History: Reports: None Psychiatric History: Reports: None Endocrine/Metabolic History: Reports: None Hematologic History: Reports: None Oncologic (Cancer) History: Reports: None Dermatologic History: Reports: None - Infectious Disease History Infectious Disease History: Reports: Chicken Pox Social & Family History - Family History Family Medical History: Noncontributory HEENT: Reports: Impaired Vision Cardiac: Reports: Hypertension Respiratory: Reports: Asthma Oncologic: Reports: Breast - Tobacco Use Smoking Status *Q: Current Every Day Smoker Years of Tobacco use: 4 Packs/Tins Daily: 0.1 - Caffeine Use Caffeine Use: Reports: Coffee - Recreational Drug Use Recreational Drug Use: Yes Drug Use in Last 12 Months: Yes Recreational Drug Type: Reports: Marijuana/Hashish Recreational Drug Use Frequency: Weekly ED ROS GENERAL - Review of Systems Review Of Systems: See Below ED EXAM, SKIN/RASH Exam: See Below Course - Vital Signs Last Recorded V/S: Last Vital Signs Temp 99.0 F 01/08/19 01:11 Pulse 88 01/08/19 01:11 Resp BP 105/77 01/08/19 01:11 Pulse Ox 98 01/08/19 01:11 - Orders/Labs/Meds Orders: Active Orders 24 hr Category Date Time Status CHLAMYDIA AND GONORRHEA BY TMA Stat Lab 01/08/19 01:13 Ordered CULTURE BLOOD [BC] Stat Lab 01/08/19 03:34 Received CULTURE BLOOD [BC] Stat Lab 01/08/19 03:34 Received Bacitracin [Bacitracin Oint 1 GM] Med 01/08/19 04:59 Once 1 dose TOP ONETIME ONE Sodium Chloride 0.9% [Normal Saline] 1,000 ml Med 01/08/19 03:30 Active IV STAT cefTRIAXone [Rocephin in Dextrose,Iso-Osm 1 GM/50 ML] 1 Med 01/08/19 04:38 Active gm Premix Bag 1 bag IV ONETIME Blood Culture x2 Reflex Set [OM.PC] Stat Oth 01/08/19 03:16 Ordered Medication Orders Sodium Chloride (Normal Saline) 1,000 mls @ 125 mls/hr IV STAT TODD Last Admin: 01/08/19 04:34 Dose: 125 mls/hr Ceftriaxone Sodium/Dextrose 1 (gm/ Premix) 50 mls @ 100 mls/hr IV ONETIME ONE Stop: 01/08/19 05:07 Last Admin: 01/08/19 04:49 Dose: 100 mls/hr Labs: Laboratory Tests 01/08/19 01/08/19 01/08/19 Range/Units 02:13 02:13 02:13 WBC 11.54 H (4.0-11.0) K/uL RBC 4.90 (4.50-5.90) M/uL Hgb 13.4 (13.0-17.0) g/dL Hct 41.4 (38.0-50.0) % MCV 84.5 (80.0-98.0) fL MCH 27.3 (27.0-32.0) pg MCHC 32.4 (31.0-37.0) g/dL RDW Std Deviation 41.6 (28.0-62.0) fl RDW Coeff of Lucia 14 (11.0-15.0) % Plt Count 170 (150-400) K/uL MPV 10.00 (7.40-12.00) fL Neut % (Auto) 78.3 (48.0-80.0) % Lymph % (Auto) 14.0 L (16.0-40.0) % [place] % (Auto) 7.3 (0.0-15.0) % Eos % (Auto) 0.1 (0.0-7.0) % Baso % (Auto) 0.3 (0.0-1.5) % Neut # (Auto) 9.0 H (1.4-5.7) K/uL Lymph # (Auto) 1.6 (0.6-2.4) K/uL [place] # (Auto) 0.8 (0.0-0.8) K/uL Eos # (Auto) 0.0 (0.0-0.7) K/uL Baso # (Auto) 0.0 (0.0-0.1) K/uL Nucleated RBC % 0.0 /100WBC Nucleated RBCs # 0 K/uL ESR 1 (0-14) mm/hr Sodium (136-148) mmol/L Potassium (3.5-5.1) mmol/L Chloride (98-107) mmol/L Carbon Dioxide (21.0-32.0) mmol/L BUN (7.0-18.0) mg/dL Creatinine (0.8-1.3) mg/dL Est Cr Clr Drug Dosing mL/min Estimated GFR (MDRD) ml/min Glucose (74-106) mg/dL Uric Acid 3.3 (2.6-7.2) mg/dL Calcium (8.5-10.1) mg/dL Total Bilirubin (0.2-1.0) mg/dL AST (15-37) IU/L ALT (14-63) IU/L Alkaline Phosphatase (46-116) U/L Total Protein (6.4-8.2) g/dL Albumin (3.4-5.0) g/dL Globulin (2.6-4.0) g/dL Albumin/Globulin Ratio (0.9-1.6) 01/08/19 Range/Units 03:34 WBC (4.0-11.0) K/uL RBC (4.50-5.90) M/uL Hgb (13.0-17.0) g/dL Hct (38.0-50.0) % MCV (80.0-98.0) fL MCH (27.0-32.0) pg MCHC (31.0-37.0) g/dL RDW Std Deviation (28.0-62.0) fl RDW Coeff of Lucia (11.0-15.0) % Plt Count (150-400) K/uL MPV (7.40-12.00) fL Neut % (Auto) (48.0-80.0) % Lymph % (Auto) (16.0-40.0) % [place] % (Auto) (0.0-15.0) % Eos % (Auto) (0.0-7.0) % Baso % (Auto) (0.0-1.5) % Neut # (Auto) (1.4-5.7) K/uL Lymph # (Auto) (0.6-2.4) K/uL [place] # (Auto) (0.0-0.8) K/uL Eos # (Auto) (0.0-0.7) K/uL Baso # (Auto) (0.0-0.1) K/uL Nucleated RBC % /100WBC Nucleated RBCs # K/uL ESR (0-14) mm/hr Sodium 138 (136-148) mmol/L Potassium 3.7 (3.5-5.1) mmol/L Chloride 102 (98-107) mmol/L Carbon Dioxide 27.5 (21.0-32.0) mmol/L BUN 17 (7.0-18.0) mg/dL Creatinine 1.1 (0.8-1.3) mg/dL Est Cr Clr Drug Dosing 105.34 mL/min Estimated GFR (MDRD) > 60.0 ml/min Glucose 100 (74-106) mg/dL Uric Acid (2.6-7.2) mg/dL Calcium 8.8 (8.5-10.1) mg/dL Total Bilirubin 0.4 (0.2-1.0) mg/dL AST 18 (15-37) IU/L ALT 18 (14-63) IU/L Alkaline Phosphatase 65 (46-116) U/L Total Protein 7.1 (6.4-8.2) g/dL Albumin 4.1 (3.4-5.0) g/dL Globulin 3.0 (2.6-4.0) g/dL Albumin/Globulin Ratio 1.4 (0.9-1.6) Meds: Medications Generic Name Dose Route Start Last Admin Trade Name Freq PRN Reason Stop Dose Admin Sodium Chloride 1,000 mls @ 125 mls/hr 01/08/19 03:30 01/08/19 04:34 Normal Saline IV 125 mls/hr STAT TODD Administration Ceftriaxone Sodium/Dextrose 1 50 mls @ 100 mls/hr 01/08/19 04:38 01/08/19 04: 49 gm/ Premix IV 01/08/19 05:07 100 mls/hr ONETIME ONE Administration Discontinued Medications Generic Name Dose Route Start Last Admin Trade Name Freq PRN Reason Stop Dose Admin Lidocaine HCl Confirm 01/08/19 04:39 Xylocaine-Mpf 1% Administered 01/08/19 04:40 Dose 10 mls @ as directed .ROUTE .STK-MED ONE Lidocaine HCl 10 ml 01/08/19 04:22 Xylocaine 1% INJECT 01/08/19 04:23 ONETIME ONE Morphine Sulfate 2 mg 01/08/19 03:17 01/08/19 04:35 Morphine IVPUSH 01/08/19 03:18 2 mg ONETIME ONE Administration Departure - Departure Time of Disposition: 05:05 Disposition: Home, Self-Care 01 Condition: Good Clinical Impression: Cellulitis - Discharge Information Referrals: PCP,None [Primary Care Provider] - Forms: ED Department Discharge Additional Instructions: The following information is given to patients seen in the emergency department who are being discharged to home. This information is to outline your options for follow-up care. We provide all patients seen in our emergency department with a follow-up referral. The need for follow-up, as well as the timing and circumstances, are variable depending upon the specifics of your emergency department visit. If you don't have a primary care physician on staff, we will provide you with a referral. We always advise you to contact your personal physician following an emergency department visit to inform them of the circumstance of the visit and for follow-up with them and/or the need for any referrals to a consulting specialist. The emergency department will also refer you to a specialist when appropriate. This referral assures that you have the opportunity for follow-up care with a specialist. All of these measure are taken in an effort to provide you with optimal care, which includes your follow-up. Under all circumstances we always encourage you to contact your private physician who remains a resource for coordinating your care. When calling for follow-up care, please make the office aware that this follow-up is from your recent emergency room visit. If for any reason you are refused follow-up, please contact the [facility] emergency department at and asked to speak to the emergency department charge nurse. - My Orders Last 24 Hours: My Active Orders 01/08/19 01:13 CHLAMYDIA AND GONORRHEA BY TMA Stat 01/08/19 03:16 Blood Culture x2 Reflex Set [OM.PC] Stat 01/08/19 03:30 Sodium Chloride 0.9% [Normal Saline] 1,000 ml IV STAT 01/08/19 03:34 CULTURE BLOOD [BC] Stat CULTURE BLOOD [BC] Stat 01/08/19 04:38 cefTRIAXone [Rocephin in Dextrose,Iso-Osm 1 GM/50 ML] 1 gm Premix Bag 1 bag IV ONETIME 01/08/19 04:59 Bacitracin [Bacitracin Oint 1 GM] 1 dose TOP ONETIME ONE - Assessment/Plan Last 24 Hours: My Active Orders 01/08/19 01:13 CHLAMYDIA AND GONORRHEA BY [facility] Stat 01/08/19 03:16 Blood Culture x2 Reflex Set [OM.PC] Stat 01/08/19 03:30 Sodium Chloride 0.9% [Normal Saline] 1,000 ml IV STAT 01/08/19 03:34 CULTURE BLOOD [BC] Stat CULTURE BLOOD [BC] Stat 01/08/19 04:38 cefTRIAXone [Rocephin in Dextrose,Iso-Osm 1 GM/50 ML] 1 gm Premix Bag 1 bag IV ONETIME 01/08/19 04:59 Bacitracin [Bacitracin Oint 1 GM] 1 dose TOP ONETIME ONE
[2019-01-08] MEDS ORDERED: Bacitracin Oint 1 GM U/D Packet TOP ONE (04:59)
[2019-01-08] MEDS ORDERED: Sulfamethoxazole/Trimethoprim 800-160 MG Tab PO ONE (05:06)
== END 2019-01-08 06:30 | disposition home or self-care (01) ==
LOC: MW.ED 00:50 → EEVIPCON 00:50 → MW.ED 06:30
DX: L03.116 Cellulitis of left lower limb (principal); F17.210 Nicotine dependence, cigarettes, uncomplicated
CPT/HCPCS: 36415; 73562; 80053; 84550; 85025; 85652; 87040; 87070; 87077; 87186; 87491; 87591; 96361; 96365; 96375; 99283; A9270; J0696; J2270; J7040

== ENCOUNTER 2019-01-11 12:15 | Emergency (ER) | payer SELFPAY ==
[2019-01-11 12:23] VITALS: BP 111/65
--- NOTE | 2019-01-11 12:30 | EDM.PDOC ---
ED HPI GENERAL MEDICAL PROBLEM - General Chief Complaint: Skin Complaint Stated Complaint: leg injury Time Seen by Provider: 01/11/19 12:17 Source of Information: Reports: Patient History Limitations: Reports: No Limitations - History of Present Illness INITIAL COMMENTS - FREE TEXT/NARRATIVE: HISTORY AND PHYSICAL: History of present illness: Patient is a 23-year-old male who presents to the emergency room for wound recheck. He was seen in the emergency room on 01/08/19 for an abscess that was to the left medial knee and the surrounding cellulitis. At that time he received IV Rocephin and script for Bactrim DS and [place]. Patient states he is concerned as when the abscess was opened in the emergency room they were unable to express any drainage from the site. He states that last evening and this morning he did have purulent drainage coming from the area. The overall soft tissue redness and swelling surrounding the abscessed area is "almost gone". He states he feels improved but was concerned as he now has drainage. Patient denies any fever, chills, headache, change in vision, syncope or near syncope. Denies any chest pain, back pain, shortness of breath or cough. Denies any abdominal pain, nausea, vomiting, diarrhea, constipation or dysuria. Has not noted any blood in urine or stool. Patient has been eating and drinking appropriately. Review of systems: As per history of present illness and below otherwise all systems reviewed and negative. Past medical history: As per history of present illness and as reviewed below otherwise noncontributory. Surgical history: As per history of present illness and as reviewed below otherwise noncontributory. Social history: See social history for further information Family history: As per history of present illness and as reviewed below otherwise noncontributory. Physical exam: General: Well-developed and well-nourished 23-year-old male. Alert and oriented. Nontoxic appearing and in no acute distress. HEENT: Atraumatic, normocephalic, pupils equal and reactive bilaterally, negative for conjunctival pallor or scleral icterus, mucous membranes moist, TMs normal bilaterally, throat clear, neck supple, nontender, trachea midline. No drooling or trismus noted. No meningeal signs. No hot potato voice noted. Lungs: Clear to auscultation, breath sounds equal bilaterally, chest nontender. Heart: S1S2, regular rate and rhythm without overt murmur Abdomen: Soft, nondistended, nontender. Negative for masses or hepatosplenomegaly. Negative for costovertebral tenderness. Pelvis: Stable nontender. Genitourinary: Deferred. Rectal: Deferred. Skin: 1 cm open area to medial left knee, minimal serous fluid from site. No purulent drainage or surrounding erythema. No soft tissue swelling. Otherwise skin is intact, warm, dry. No lesions or rashes noted. Extremities: Moves all extremities per self without difficulty or deficits, negative for cords or calf pain. Neurovascular unremarkable. Neuro: Awake, alert, oriented. Cranial nerves II through XII unremarkable. Cerebellum unremarkable. Motor and sensory unremarkable throughout. Exam nonfocal. Notes: After reading the provider's note from the patient's encounter on 01/08/19, it appears that the area has improved greatly. Patient agrees that he feels the cellulitis is improving and pain is minimal. Encouraged him to continue to take his antibiotic. Supportive care measures were reviewed and discussed. Voices understanding and is agreeable to plan of care. Denies any further questions or concerns at this time. Diagnostics: None Therapeutics: Bacitracin Dressing Prescription: None Impression: Wound re-check History of cellulitis Plan: 1. Continue taking the antibiotic as prescribed. 2. Keep the skin clean and dry 3. Follow up with primary care as discussed. Return to the ED as needed as discussed. Definitive disposition and diagnosis as appropriate pending reevaluation and review of above. sore to L knee Pain Score (Numeric/FACES): 4 - Related Data Allergies Allergy/AdvReac Type Severity Reaction Status Date / Time No Known Allergies Allergy Verified 01/11/19 12:23 Home Meds: Home Meds . [No Known Home Meds] 01/08/19 [History] Past Medical History - Past Health History Medical/Surgical History: Denies Medical/Surgical History HEENT History: Reports: None Cardiovascular History: Reports: None Respiratory History: Reports: Asthma Gastrointestinal History: Reports: None Musculoskeletal History: Reports: None Neurological History: Reports: None Psychiatric History: Reports: None Endocrine/Metabolic History: Reports: None Hematologic History: Reports: None Oncologic (Cancer) History: Reports: None Dermatologic History: Reports: None - Infectious Disease History Infectious Disease History: Reports: Chicken Pox Social & Family History - Family History Family Medical History: Noncontributory HEENT: Reports: Impaired Vision Cardiac: Reports: Hypertension Respiratory: Reports: Asthma Oncologic: Reports: Breast - Tobacco Use Smoking Status *Q: Current Every Day Smoker Years of Tobacco use: 4 Packs/Tins Daily: 0.1 - Caffeine Use Caffeine Use: Reports: Coffee - Recreational Drug Use Recreational Drug Use: Yes Drug Use in Last 12 Months: Yes Recreational Drug Type: Reports: Marijuana/Hashish Recreational Drug Use Frequency: Weekly ED ROS GENERAL - Review of Systems Review Of Systems: ROS reveals no pertinent complaints other than HPI. ED EXAM, SKIN/RASH Exam: See Below (See dictation) Course - Vital Signs Last Recorded V/S: Last Vital Signs Temp 97.7 F 01/11/19 12:19 Pulse 68 01/11/19 12:19 Resp 16 01/11/19 12:19 BP 111/65 01/11/19 12:19 Pulse Ox 95 01/11/19 12:19 - Orders/Labs/Meds Orders: Active Orders 24 hr Category Date Time Status Communication Order [RC] STAT Care 01/11/19 12:31 Active Meds: Medications Discontinued Medications Generic Name Dose Route Start Last Admin Trade Name Greta PRN Reason Stop Dose Admin Bacitracin 1 dose 01/11/19 12:31 01/11/19 12:37 Bacitracin Oint 1 Gm TOP 01/11/19 12:32 1 dose ONETIME ONE Administration Departure - Departure Time of Disposition: 12:30 Disposition: Home, Self-Care 01 Clinical Impression: Encounter for wound re-check, History of cellulitis - Discharge Information Instructions: Cellulitis, Adult Referrals: PCP,Unknown [Primary Care Provider] - Forms: ED Department Discharge Additional Instructions: The following information is given to patients seen in the emergency department who are being discharged to home. This information is to outline your options for follow-up care. We provide all patients seen in our emergency department with a follow-up referral. The need for follow-up, as well as the timing and circumstances, are variable depending upon the specifics of your emergency department visit. If you don't have a primary care physician on staff, we will provide you with a referral. We always advise you to contact your personal physician following an emergency department visit to inform them of the circumstance of the visit and for follow-up with them and/or the need for any referrals to a consulting specialist. The emergency department will also refer you to a specialist when appropriate. This referral assures that you have the opportunity for follow-up care with a specialist. All of these measure are taken in an effort to provide you with optimal care, which includes your follow-up. Under all circumstances we always encourage you to contact your private physician who remains a resource for coordinating your care. When calling for follow-up care, please make the office aware that this follow-up is from your recent emergency room visit. If for any reason you are refused follow-up, please contact the [facility] Emergency Department at and asked to speak to the emergency department charge nurse. [facility] [address] [place] [id number] [address] 1. Continue taking the antibiotic as prescribed. 2. Keep the skin clean and dry 3. Follow up with primary care as discussed. Return to the ED as needed as discussed. - My Orders Last 24 Hours: My Active Orders 01/11/19 12:31 Communication Order [RC] STAT - Assessment/Plan Last 24 Hours: My Active Orders 01/11/19 12:31 Communication Order [RC] STAT
[2019-01-11] MEDS ORDERED: Bacitracin Oint 1 GM U/D Packet TOP ONE (12:31)
== END 2019-01-11 12:42 | disposition home or self-care (01) ==
LOC: MW.ED 12:15
DX: Z48.817 Encounter for surgical aftercare following surgery on the skin and subcutaneous tissue (principal); F17.210 Nicotine dependence, cigarettes, uncomplicated
CPT/HCPCS: 99282

== ENCOUNTER 2024-10-09 20:16 | Emergency (ER) | payer SELFPAY ==
[2024-10-09] MEDS: Lidocaine 1% 5 ML VIAL INJECT ONE (21:12)
[2024-10-09] MEDS: Amoxicillin/Clavulanate K 875-125 MG Tab PO ONE (21:12)
[2024-10-09] MEDS: Acetaminophen/oxyCODONE 325-5 MG Tab PO ONE (22:00)
[2024-10-09 22:05] VITALS: BP 135/79; PULSE 90
== END 2024-10-09 22:09 | disposition home or self-care (01) ==
LOC: MW.ED 20:16
DX: K61.0 Anal abscess (principal); J45.909 Unspecified asthma, uncomplicated; F17.210 Nicotine dependence, cigarettes, uncomplicated; Z79.899 Other long term (current) drug therapy; Z75.8 Other problems related to medical facilities and other health care
CPT/HCPCS: 46050; 99283; A9270; J3490